=== PATIENT | male | born 2000 | race Two or more races ===

== ENCOUNTER 2021-09-08 17:16 | Inpatient (IN) | payer OTHER ==
[~2021-09-08] VITALS: Ht 165.1 cm; Wt 56.7 kg
[2021-09-08] VITALS (10 sets, daily range): BP systolic 99–121; BP diastolic 55–70
--- NOTE | 2021-09-08 17:18 | NUR ---
PT [id number], PER PARAMEDICS REPORT, [facility] CALLED 911 S/P NOTICING PATIENT IS UNRESPONSIVE. PT UPON ARRIVAL HAS A GCS SCORE OF 3. GOWNED AND PLACED ON MONITOR. STABLE VITALS NOTED. MARIFER HONEYCUTT AT BEDSIDE FOR EVALUATION.
--- NOTE | 2021-09-08 17:20 | NUR ---
IV LINE STARTED BLOOD DRAWN, LAB CALLED FOR FRICTION PAINT MACHINE TENDER.
--- NOTE | 2021-09-08 18:02 | NUR ---
RT AT PT'S BEDSIDE
--- NOTE | 2021-09-08 18:04 | NUR ---
THE PATIENT IS INTUBATED, ET SIZE 7.5 AND 26 AT THE LIP. RT AT THE BEDSIDE
[2021-09-08] MEDS ORDERED: PROPOFOL 100 ML ONE (18:05)
--- NOTE | 2021-09-08 18:09 | NUR ---
chest x-ray at the bedside
--- NOTE | 2021-09-08 18:17 | NUR ---
ADJUSTED TO 23 CM AT THE LIP. RT AT THE BEDSIDE
--- NOTE | 2021-09-08 18:18 | NUR ---
TAKEN TO CT VIA BAILEE PER ACLS POLICY
[2021-09-08 18:23] LABS: BASOPHILS # (AUTO) 0.1 K/uL (0.0-0.2); BASOPHILS % (AUTO) 0.6 % (0.0-2.0); EOSINOPHILS % (AUTO) 0.8 % (0.0-6.0); HEMATOCRIT 44 % (39-51); HEMOGLOBIN 15.2 g/dL (13.5-17.5); LYMPHOCYTES # (AUTO) 2.4 K/uL (0.8-4.8); MEAN CORPUSCULAR HGB CONC 34 g/dl (31.0-36.0); MEAN CORPUSCULAR VOLUME 88 fL (80-96); MONOCYTES % (AUTO) 10.8 % (2.0-12.0); NEUTROPHILS # (AUTO) 5.6 K/uL (1.8-8.9); NEUTROPHILS % (AUTO) 61.8 % (43.0-81.0); PLATELET COUNT (AUTO) 360 K/uL (150-450); RED BLOOD CELL COUNT(AUTO) 5.03 MIL/uL (4.5-6.0); WHITE BLOOD COUNT (AUTO) 9.1 K/uL (4.3-11.0)
--- NOTE | 2021-09-08 18:25 | NUR ---
INITIATED F/C 16FR; PATENT AND INTACT
--- NOTE | 2021-09-08 18:27 | NUR ---
THE PATIENT IS BACK FROM CT VIA GURNEY PER ACLS POLICY
[2021-09-08 18:30] LABS: BILIRUBIN,URINE Negative (NEGATIVE); COLOR,URINE YELLOW (YELLOW); LEUKOCYTE ESTERASE ,URINE Negative (NEGATIVE); NITRITE, URINE Negative (NEGATIVE); PROTEIN,URINE Negative (NEGATIVE); UGLUCOSE Negative (NEGATIVE); UROBILINOGEN,URINE 0.2 EU/dL (0.2)
[2021-09-08] MEDS ORDERED: IV NS 0.9% 1,000 ML BAG IV ONE ×2 (18:30→19:30)
[2021-09-08] MEDS ORDERED: SUCCINYLCHOLINE CHLORIDE 20 MG/ML VIAL IV ONE ×2 (18:30→21:02)
[2021-09-08] MEDS ORDERED: ETOMIDATE 2 MG/ML VIAL IV ONE ×2 (18:30→21:02)
[2021-09-08] MEDS ORDERED: PROPOFOL 100 ML IV ONE (18:30)
[2021-09-08 18:38] LABS: ALANINE AMINOTRANSFERASE 23 U/L (12-78); ALKALINE PHOSPHATASE 104 U/L (46-116); ASPARTATE AMINOTRANSFERASE 13 U/L (15-37); BILIRUBIN,DIRECT 0.1 mg/dL (0.0-0.2); BILIRUBIN,TOTAL 0.3 mg/dL (0.2-1.0); CALCIUM, SERUM 7.9 mg/dL (8.5-10.1); CARBON DIOXIDE 27 mmol/L (21-32); CHLORIDE 107 mmol/L (98-107); GLUCOSE 110 mg/dL (74-106); POTASSIUM 3.2 mmol/L (3.5-5.1); SODIUM SERUM 145 mmol/L (136-145); TOTAL PROTEIN, SERUM 7.3 g/dL (6.4-8.2); UREA NITROGEN, BLOOD 10 mg/dL (7-18)
--- NOTE | 2021-09-08 18:42 | NUR ---
RT Received phone call to intubate patient in ER bed#5. Patient intubated by attending physician with MD Boss supervision. Size 7.5 ETT 26cm @ the lip. ETT pulled back to 23cm @ the lip post Xray. Vent settings provided by MD Bernal (AC18,Vt450,+5,100%). Patient tolerating current settings well.
--- NOTE | 2021-09-08 18:59 | NUR ---
RT AT PT'S BEDSIDE FOR ABG. PT TOLERATING VENT SETTINGS AT 100%: AC 18, TV 450, PEEP 5, FIO2 100%.
--- NOTE | 2021-09-08 18:59 | NUR ---
RT AT PT'S BEDSIDE FOR ABG. PT TOLERATING VENT SETTINGS AT 100%: AC 18, TV 450, PEEP 5, FIO2%.
[2021-09-08 19:09] LABS: ABG BASE EXCESS -4.2 mmol/L; ABG PCO2 35.5 mmHg (35.0-45.0); ABG PH 7.373 (7.350-7.450); COHb 0.4 % (0.5-1.5); MetHb 0.7 % (0.0-1.5); O2Hb 98.5 % (94.0-97.0); PEEP,BG 5 cm H2O; SITE, ABG Right Radial; VENT MODE, BG AC 18 7450 100% +5; VT, ABG 450 mL
--- NOTE | 2021-09-08 19:20 | NUR ---
PT TOLERATING VENT SETTINGS AT 100%: AC 18, TV 450, PEEP 5, FIO2 40%.
--- NOTE | 2021-09-08 19:40 | NUR ---
COVID ANTIGEN AND PCR COLLECTED AND SENT TO LAB
[2021-09-08] MEDS ORDERED: POTASSIUM CL. PREMIX PERIPHER. 100 ML ONE (19:50)
[2021-09-08] MEDS: POTASSIUM CL. PREMIX PERIPHER. 50 ML IV SCH ×2 (20:00→21:11)
--- NOTE | 2021-09-08 20:01 | NUR ---
STARTED K CL 10MEQ @50ML/HR BAG 10/02
--- NOTE | 2021-09-08 20:31 | NUR ---
ICU 256
--- NOTE | 2021-09-08 21:19 | NUR ---
REPORT GIVEN TO TAYLA TEACHING MUSIC LESSONS FOR RUTH
[2021-09-08] MEDS ORDERED: NOREPINEPHRINE 8 MG in IV NS 0.9% 250 ML IV PRN (21:30)
--- NOTE | 2021-09-08 21:57 | NUR ---
PT TRANSFFERED TO ICU 256 VIA ACLS PROTOCOL WITH RT AND ON PROPOFOL DRIP. VSS. ALL BELONGINGS WITH PT.
--- NOTE | 2021-09-08 22:00 | NUR ---
ADMIT NOTE REC'D PT FROM ERMIGUEL RN ALONG WITH RT AT BEDSIDE. PT IS ORALLY INTUBATED 7.5/23CM AT LIP ON VENT SETTINGS AC 18 TIDAL VOL 450 FIO2 40% PEEP 5. PT IS SEDATED WITH PROPOFOL RUNNING AT 30 MCG/KG/MIN, IV SITES RIGHT HAND #18 AND LAC #18 FLUSHED PATENT INTACT. PT PRESENTS WITH SANTIAGO CATH, 1000ML EMPTIED, URINE CLEAR YELLOW DRAINING TO GRAVITY. PT BELONGINGS AT BEDSIDE. SAFETY MEASURES IN PLACE. HOB ELEVATED SIDE RAILS UP X2 BED LOCKED IN LOWEST POSITION. WILL CONT TO MONITOR CLOSELY. Addendum: 09/09/21 at 0018 by TAYLA MORELAND RN PT O2SAT 100% NONLABORED BREATHING
[2021-09-08] MEDS: PROPOFOL 100 ML IV PRN (23:09)
[2021-09-08] MEDS: IV NS 0.9% 1,000 ML IV PRN (23:13)
--- NOTE | 2021-09-08 23:14 | NUR ---
RN NOTE ADMIT ORDERS PT TRANSFERRED TO UNIT WITH SANTIAGO CATH PRESENT, NOTIFIED AMY DUTTA PT ON PROPOFOL DRIP 30MCG/KG/MIN WHEN BROUGHT UP FROM ER, ORDERS FOR PROPOFOL CARRIED OUT. WILL TITRATE ACCORDINGLY. ADMIT SUPERVISOR HARDBOARD ORDERS PLACED FOR LEVO, INFORMED AMY DUTTA THAT PT BP IS HOLDING 100-110S AT THIS TIME, PER SUPERVISOR HARDBOARD HOLD LEVO.
[2021-09-09] VITALS (43 sets, daily range): BP systolic 97–147; BP diastolic 50–85
[2021-09-09] MEDS: PROPOFOL 100 ML IV PRN (01:01)
[2021-09-09 04:27] LABS: BASOPHILS % (AUTO) 0.2 % (0.0-2.0); EOSINOPHILS % (AUTO) 0.2 % (0.0-6.0); HEMATOCRIT 41 % (39-51); HEMOGLOBIN 14.2 g/dL (13.5-17.5); LYMPHOCYTES # (AUTO) 2.6 K/uL (0.8-4.8); LYMPHOCYTES % (AUTO) 24.4 % (20.0-44.0); MEAN CORPUSCULAR HGB CONC 35 g/dl (31.0-36.0); MEAN CORPUSCULAR VOLUME 89 fL (80-96); MONOCYTES # (AUTO) 0.7 K/uL (0.1-1.30); MONOCYTES % (AUTO) 6.2 % (2.0-12.0); NEUTROPHILS # (AUTO) 7.4 K/uL (1.8-8.9); PLATELET COUNT (AUTO) 334 K/uL (150-450); RED BLOOD CELL COUNT(AUTO) 4.65 MIL/uL (4.5-6.0); WHITE BLOOD COUNT (AUTO) 10.7 K/uL (4.3-11.0)
[2021-09-09 05:03] LABS: ALBUMIN 3.3 g/dL (3.4-5.0); BILIRUBIN,TOTAL 0.1 mg/dL (0.2-1.0); CALCIUM, SERUM 6.8 mg/dL (8.5-10.1); CREATININE 0.8 mg/dL (0.6-1.3); PHOSPHORUS 3.4 mg/dL (2.5-4.9); POTASSIUM 3.7 mmol/L (3.5-5.1); TOTAL PROTEIN, SERUM 6.3 g/dL (6.4-8.2)
--- NOTE | 2021-09-09 06:12 | NUR ---
RN NOTE PROPOFOL PER RECEPTIONIST CADEN DUTTA. OKAY TO TITRATE UP TO 100MCG/KG/MIN
[2021-09-09] MEDS ORDERED: PROPOFOL 100 ML IV PRN (06:30)
--- NOTE | 2021-09-09 06:50 | NUR ---
RN NOTE CLOSING PT TURNED AND REPOSITIONED Q2H, MINIMAL ETT SECRETIONS NOTED, PT ALSO ORALLY SUCTIONED, THICK CLEAR PINK TINGED SECRETIONS NOTED. BED BATH DONE PEREZ CARE DONE. PT PENDING WOUND CONSULT. PT REMAINS WITH RESTRAINTS, SANTIAGO OUTPUT 2200ML. LACTIC ACID IMPROVED, PT HAS BECOME MORE AWAKE TITRATING PROPOFOL NEEDED TO KEEP PT COMFORTABLE, SAFETY MEASURES IN PLACE. WILL ENDORSE TO DAY SHIFT RN FOR CONTINUATION OF CARE
--- NOTE | 2021-09-09 07:15 | NUR ---
RN NOTE PATIENT OBSERVED IN BED, ASLEEP WITH INTUBATION ON MECHANICAL VENTILATOR, ON DIPRIVAN 55MCG/KG/HR, SANTIAGO CATHETER NOTED DRAINING WELL VIA GRAVITY, PATIENT ON BILATERAL SOFT WRIST RESTRAIN SKIN INTACT, TELE MONITOR SR AT THIS TIME, SAFETY MEASURE OBSERVED, BED WHEELS LOCK, CALL LIGHT WITHIN REACH, WILL CONTINUE TO MONITOR.
--- NOTE | 2021-09-09 07:33 | NUR ---
RT RECEIVED PATIENT ORALLY INTUBATED WITH 7.5 ETT SECURED @ 23 CM LIP LINE. PT ON [facility] VENT WITH THE SETTINGS OF AC 18, VT 450, FIO2 40%, PEEP 5. VENT PLUGGED INTO RED OUTLET. ALARMS ON AND FUNCTIONING PROPERLY. BVM AT HEAD OF BED. NO SIGNS OF DISTRESS NOTED AT THIS TIME. WILL CONTINUE TO MONITOR THE PATIENT. Addendum: 09/09/21 at 1014 by RHONA VALERO RT Amended: Links added.
--- NOTE | 2021-09-09 07:52 | NUR ---
RN NOTE PER DR. BAKER TURN OFF AALIYAH.
--- NOTE | 2021-09-09 08:20 | NUR ---
RT PATIENT SELF EXTUBATED. PLACED PT ON 5LPM O2 VIA NC. Sp02 100%, HR 79. CHARGE NURSE NAOMI AWARE. DR BAKER AWARE. NO SIGNS OF DISTRESS NOTED AT THIS TIME. WILL CONTINUE TO MONITOR FOR ANY CHANGES.
--- NOTE | 2021-09-09 08:25 | NUR ---
RN NOTE PATIENT SELF EXTUBATED, STARTED WITH O2 VIA NC @ 5LPM TOLERATING WELL, O2 SAT OF 100%, NOT IN RESPIRATORY DISTRESS, DR. BAKER AWARE.
[2021-09-09] MEDS: IV NS 0.9% 1,000 ML IV PRN ×2 (08:57→18:36)
[2021-09-09] MEDS ORDERED: PANTOPRAZOLE 40 MG VIAL IV SCH (09:00)
--- NOTE | 2021-09-09 09:18 | NUR ---
RN NOTE PATIENT AWAKE, UPON ASSESSMENT PATIENT VERBALIZE NAME LAST NAME ELBA, FIRST NAME CHARLOTTE, DATE OF 2000. Addendum: 09/09/21 at 1128 by YOSELIN VILLALOBOS RN RN NOTE PATIENT AWAKE, UPON ASSESSMENT PATIENT VERBALIZE NAME LAST NAME CHARLOTTE, FIRST NAME ELBA, DATE OF 2000.
--- NOTE | 2021-09-09 09:29 | NUR ---
RN NOTE INCIDENT REPORT DONE, [id number]
--- NOTE | 2021-09-09 10:17 | NUR ---
WOUND CARE CONSULT: REVIEWED CHART, NURSING DOCUMENTATION AND PHOTO WHICH INDICATES DRY WOUNDS TO HEELS, PRESENT ON ADMISSION. DR CHILDRESS CALLED FOR DPM CONSULT. IN AGREEMENT WITH PLAN OF CARE.
--- NOTE | 2021-09-09 16:57 | NUR ---
RN NOTE PER BRANDAN EMERSON DO, DISCONTINUE SANTIAGO CATHETER.
--- NOTE | 2021-09-09 18:53 | NUR ---
RN NOTE PATIENT OBSERVED IN BED,ALERT AND ORIENTED X4 ABLE TO VERBALIZE NEEDS, ON ROOM AIR O2 SAT OF 98%, ON TELE MONITOR SR AT THIS TIME, CONTINENT ON BOWEL AND BLADDER URINAL AT BED SIDE, SAFETY MEASURE OBSERVED, BED WHEELS LOCK, CALL LIGHT WITHIN REACH, WILL ENDORSE TO NOC SHIFT.
--- NOTE | 2021-09-09 19:45 | NUR ---
ICU/SHOP WELDER RECIEVED REPORT FROM DAY SHIFT NURSE. SEE FLOWSHEET FOR ASSESSMENT, PT DOES HAVE A FEW SKIN ISSUES, WHICH IS ADDRESSED, ALONG WITH A INTERVENTIONS TO EACH. PT TURNS AND REPOSITIONS SELF FOR COMFORT AND CARE. NO ACUTE DISTRESS SEEN AT THIS TIME. WILL CONTINUE TO MONITOR THIS PT.
--- NOTE | 2021-09-09 21:30 | NUR ---
ICU/AUTOTRANSFUSIONIST PT ASKED TO REMOVE IVF. EXPLAIN WHY IT SHOULD BE KEPT, HOWEVER PT REFUSED IT. THEN IT WAS D/C'D. PT IS TOLERATING PO FLUID. WILL CONTINUE TO MONITOR THIS PT.
[2021-09-10] VITALS (8 sets, daily range): BP systolic 116–123; BP diastolic 53–83
--- NOTE | 2021-09-10 00:10 | NUR ---
ICU/AIRPORT ENGINEER PT HAS EXPRESSED THAT HE WOULD LIKE TO BE DISCHARGE FROM THE HOSPITAL IN THE MORNING. TRIED TO EXPLAIN THAT HE SHOULD STAY TO MAKE SURE HE HAS FULLY RECOVERED FROM HIS BOUT OF AMS.
--- NOTE | 2021-09-10 02:24 | NUR ---
ICU/CONSTRUCTION PIT WORKER PT UP TO THE BEDSIDE COMMODE, NO BM NOTED.
--- NOTE | 2021-09-10 04:20 | NUR ---
ICU/CLAIMS COLLECTOR PT REFUSED AM LABS. WILL TRY LATER ON WHEN PT IS AWAKE.
--- NOTE | 2021-09-10 07:00 | NUR ---
ICU/DATABASE MANAGER PT IS GOING HOME AGAINST MEDICAL ADVICE. HOUSE SUP. NOTIFED AND CAPTAIN CANNERY TENDER MD WAS NOTIFED. ALL IV'S WERE D/C'D.
== END 2021-09-10 07:08 | disposition left against medical advice (07) | DRG 770 ==
LOC: ER 18:04 → EDBD 20:56 → ICU 20:56
PROVIDERS: ADMIT Nurse Practitioner Acute Care; ATTEND Nurse Practitioner Acute Care
PROC: 5A1935Z Respiratory Ventilation, Less than 24 Consecutive Hours (ICD-10-PCS; principal; 2021-09-08)
PROC: 0BH18EZ Insertion of Endotracheal Airway into Trachea, Via Natural or Artificial Opening Endoscopic (ICD-10-PCS; 2021-09-08)
DX: F10.129 Alcohol abuse with intoxication, unspecified (principal); R40.2112 Coma scale, eyes open, never, at arrival to emergency department; J96.00 Acute respiratory failure, unspecified whether with hypoxia or hypercapnia; R40.2212 Coma scale, best verbal response, none, at arrival to emergency department; R40.2312 Coma scale, best motor response, none, at arrival to emergency department; L89.616 Pressure-induced deep tissue damage of right heel; E87.2 Acidosis; L89.626 Pressure-induced deep tissue damage of left heel; G92.8 Other toxic encephalopathy; E87.6 Hypokalemia; Z20.822 Contact with and (suspected) exposure to COVID-19; M62.562 Muscle wasting and atrophy, not elsewhere classified, left lower leg; M62.561 Muscle wasting and atrophy, not elsewhere classified, right lower leg
CPT/HCPCS: 31720; 36415; 36600; 70450-TC; 71045-TC; 80048-TC; 80053-TC; 80076-TC; 82803-TC; 82962-TC; 83605-TC; 83735-TC; 84100-TC; 84484-TC; 85025-TC; 85730-TC; 87040-TC; 87081-TC; 87086-TC; 92526; 92611-TC; 94003-TC; 94799-TC; 99082-TC; C9113; C9803; G0378; J0330; J3480; J3490; J7030; U0003